=== PATIENT | male | born 1980 | race Caucasian/White ===

== ENCOUNTER 2016-07-10 15:34 | Emergency (ER) | payer SELFPAY ==
--- NOTE | 2016-07-10 15:46 | ERPHSYRPT ---
- History of Present Illness Time Seen by Provider: 07/10/16 15:41 Source: patient Exam Limitations: no limitations Physician History: patient states that he got upset 2 days ago and hit his right hand against some metal object. Patient presents to the ED with right hand swelling and pain to right fourth and fifth metacarpal areas. Patient states that he has been using his hands the last 2 days, although there is some difficulty due to pain and swelling. Denies any numbness and tingling to distal fingers. Denies any other injuries at this time. Occurred: days ago (2) Method of Injury: direct blow Quality: intermittent, dullness Severity of Pain-Max: moderate Severity of Pain-Current: moderate Extremities Pain Location: hand: right Modifying Factors: Improves With: immobilization (improves), movement (worsens) Allergies/Adverse Reactions: No Known Drug Allergies Allergy (Unverified 07/10/16 15:50) Home Medications: No Home Meds 1 tab PO DAILY 07/10/16 [History] - Review of Systems Constitutional: No Fever, No Chills Eyes: No Symptoms Ears, Nose, & Throat: No Symptoms Respiratory: No Cough, No Dyspnea Cardiac: No Chest Pain, No Edema, No Syncope Abdominal/Gastrointestinal: No Abdominal Pain, No Nausea, No Vomiting, No Diarrhea Genitourinary Symptoms: No Dysuria Musculoskeletal: Injury, Joint Swelling, No Back Pain, No Neck Pain Skin: No Rash Neurological: No Dizziness, No Focal Weakness, No Sensory Changes Psychological: No Symptoms Endocrine: No Symptoms All Other Systems: Reviewed and Negative - Past Medical History Pertinent Past Medical History: No - Past Surgical History Past Surgical History: Yes Musculoskeletal: Orthopedic Surgery Other Surgical History: surgery on wrist - Nursing Vital Signs Nursing Vital Signs: Initial Vital Signs Temperature 97.6 F Temperature Source Oral Pulse Rate 80 Respiratory Rate 16 Blood Pressure [Left Arm] 141/85 Pain Intensity 6 - Physical Exam General Appearance: alert Eyes, Ears, Nose, Throat Exam: moist mucous membranes Neck Exam: non-tender, supple Cardiovascular/Respiratory Exam: chest non-tender, normal breath sounds, regular rate/rhythm, no respiratory distress Abdominal Exam: non-tender, No guarding Back Exam: normal inspection, No vertebral tenderness Shoulder Exam: normal inspection Elbow/Forearm Exam: normal inspection Wrist Exam: normal inspection Hand Exam: limited ROM, soft tissue tenderness (R 4/5th metacarpal area), swelling Neuro/Tendon Exam: normal sensation, normal motor functions Mental Status Exam: alert, oriented x 3, cooperative Skin Exam: normal color, warm, dry - Course Nursing assessment & vital signs reviewed: Yes - Radiology Exams Hand X-ray Interpretation: Interpreted by me, No Fracture Ordered Tests: Active Orders 24 hr Category Date Time Status HAND (MINIMUM 3 VIEWS) Stat Exams 07/10/16 15:53 Taken - Departure Time of Disposition: 16:13 Departure Disposition: Home Clinical Impression: Contusion of right hand Condition: Stable Critical Care Time: No Additional Instructions: Ice, elevate to decrease swelling. May take Motrin or Tylenol for pain.. Return for worse pain, swelling, numbness, tingling or any problems
[2016-07-10 16:16] VITALS: BP 137/69; PULSE 83; O2SAT 99
--- NOTE | 2016-07-10 22:12 | XRAY ---
Indication: Trauma. Comparison: None 3 views of the right hand demonstrates mildly displaced comminuted fracture involving the base of the fifth metacarpal with intra-articular extension and adjacent soft tissue swelling. No other bony, articular, or soft tissue abnormalities. Comment: Fracture not reported on preliminary interpretation. I gave telephone report to Dr. Luz in the ER at 2207 hrs. on July 10, 2016.
== END 2016-07-10 16:20 | disposition home or self-care (01) ==
LOC: ED 15:34
DX: S62.316A Displaced fracture of base of fifth metacarpal bone, right hand, initial encounter for closed fracture (principal); W22.8XXA Striking against or struck by other objects, initial encounter; S60.221A Contusion of right hand, initial encounter; M25.541 Pain in joints of right hand
CPT/HCPCS: 73130; 99283; L3908